=== PATIENT | female | born 1940 | race Caucasian/White ===

== ENCOUNTER → 2016-12-13 | Day surgery (SDC) | payer MEDICARE, OTHER ==
[~2016-12-13] MED LIST: Lactated Ringers 1,000 ML IV SCH; Propofol 200 MG/20 ML SDV IV ONE
[2016-12-13 10:06] VITALS: BP 116/64
--- NOTE | 2016-12-13 13:36 | OR ---
DATE OF OPERATION: 12/13/2016 PREOPERATIVE DIAGNOSIS: FAMILY HISTORY OF COLON CARCINOMA. POSTOPERATIVE DIAGNOSIS: FAMILY HISTORY OF COLON CARCINOMA. SURGEON: Nicolas Castillo MD PROCEDURE: FULL-LENGTH COLONOSCOPY WITH POLYP REMOVAL X1. 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 COMPLICATIONS: None. SPECIMEN: Small tubular adenoma hepatic flexure. FINDINGS: 1. Full-length colonoscopy. 2. Small polyp hepatic flexure. RECOMMENDATIONS: Followup colonoscopy every 5 years. INDICATIONS: The patient has a family history of colon cancer. She is due for a routine followup colonoscopy. DESCRIPTION OF PROCEDURE: The patient was prepped and draped, placed in the left lateral decubitus position. A lubricated Olympus colonoscope was inserted and easily advanced to the cecum. Direct visualization of the ileocecal valve and appendiceal orifice was accomplished. Bowel prep was fine. Upon withdrawal of the scope, the cecum and ascending colon were benign. The patient has a small flat tubular adenoma hepatic flexure, removed in its entirety with cold forceps x2. The rest of the transverse and descending colon were completely unremarkable. Throughout the entire sigmoid and rectosigmoid area, I found no polyps, mass, ulceration, or bleeding sites. No vascular abnormalities or signs of colitis. The rectal vault was unremarkable. Retroflexion of the scope in the rectum showed some perianal hemorrhoidal disease, but otherwise benign. Air was then suctioned from the colon. The scope was removed without complication. SHAWNA/ZAYNAB /[id number]
== END ==
LOC: CC.SDS 07:40
PROVIDERS: ATTEND Family Medicine
PROC: 0DBK8ZZ Excision of Ascending Colon, Via Natural or Artificial Opening Endoscopic (ICD-10-PCS; principal; 2016-12-13)
DX: Z12.11 Encounter for screening for malignant neoplasm of colon (principal); D12.3 Benign neoplasm of transverse colon; Z80.0 Family history of malignant neoplasm of digestive organs; J20.9 Acute bronchitis, unspecified; J45.909 Unspecified asthma, uncomplicated; M50.90 Cervical disc disorder, unspecified, unspecified cervical region; K21.9 Gastro-esophageal reflux disease without esophagitis; E78.00 Pure hypercholesterolemia, unspecified; D64.9 Anemia, unspecified; E78.5 Hyperlipidemia, unspecified; M19.90 Unspecified osteoarthritis, unspecified site; H40.9 Unspecified glaucoma; Z88.8 Allergy status to other drugs, medicaments and biological substances; F17.210 Nicotine dependence, cigarettes, uncomplicated; Z91.040 Latex allergy status; Z79.82 Long term (current) use of aspirin; Z79.899 Other long term (current) drug therapy; M85.80 Other specified disorders of bone density and structure, unspecified site; Z98.890 Other specified postprocedural states
CPT/HCPCS: 00810; 45380; 88305; J2704; J7120

== ENCOUNTER 2020-07-16 12:28 | Emergency (ER) | payer MEDICARE, OTHER ==
[2020-07-16] MEDS ORDERED: Sodium Chloride 0.9% 500 ML IV SCH (13:00)
--- NOTE | 2020-07-16 13:04 | EDM.PDOC ---
ED HPI GENERAL MEDICAL PROBLEM - General Chief Complaint: General Stated Complaint: Dizzy Time Seen by Provider: 07/16/20 12:55 Source of Information: Reports: Patient History Limitations: Reports: No Limitations - History of Present Illness INITIAL COMMENTS - FREE TEXT/NARRATIVE: This patient is a 80 year old female that presents to the ER. Patient reports that this morning she was tearing checks and started having some left and right shoulder pain with this. She reports that she has chronic history of bilateral shoulder pain, left worse than right due to rotator cuff tears chronic. She reports that she started to have this pain into the back of her head this morning from tearing the checks. She reports that she normally sees PT for this. She reports that she also forgot to take her antacid pill this morning for GERD before breakfast and went to [facility]. She reports being in [facility] and started having "rolling in belly", nausea. She reports taking a tums. She reports that in [facility] her left shoulder was hurting into the back of her head, so she kept rolling her neck and shoulder to help the pain. She reports while doing this she became dizzy and nearly pass out. She reports the room felt distant and she was seeing lights. She reports that everyone there at [facility] said she looked pale. She reports she did not pass out, but felt like she could have. She denies unilateral weaknesses. She denies chest pain, shortness of breath. She reports her dizziness has resolved. Onset: Today, Sudden Onset Date: 07/16/20 Onset Time: 12:10 Location: Reports: Head Quality: Reports: Ache Severity: Moderate Improves with: Reports: Immobilization Worsens with: Reports: Movement (posterior headache worsens with movement of the shoulders and neck) Associated Symptoms: Reports: No Other Symptoms, Headaches, Nausea/Vomiting, Syncope (near). 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: Reports: Other (see below) (Tums for acid reflux) Neck Pain Score (Numeric/FACES): 3 - Related Data Allergies Allergy/AdvReac Type Severity Reaction Status Date / Time atorvastatin calcium Allergy Liver Verified 07/16/20 12:50 [From Lipitor] Problems cyclobenzaprine HCl Allergy Cannot Verified 07/16/20 12:50 [From Flexeril] Remember Latex, Natural Rubber Allergy Cannot Verified 07/16/20 12:50 Remember pravastatin sodium Allergy Cannot Verified 07/16/20 12:50 [From Pravachol] Remember rosuvastatin calcium Allergy Liver Verified 07/16/20 12:50 [From Crestor] Problems simvastatin [From Zocor] Allergy Liver Verified 07/16/20 12:50 Problems Home Meds: Home Meds Arfvf-K-Kqousisfeofna [Beano] 1 each PO BID PRN 10/20/13 [History] Aspirin 325 mg PO DAILY PRN 10/20/13 [History] Ezetimibe [Zetia] 10 mg PO BEDTIME 10/20/13 [History] Famciclovir 500 mg PO DAILY PRN 10/20/13 [History] Fluticasone Furoate [Veramyst] 1 spray FELIX ASDIRECTED PRN 10/20/13 [History] Hypromellose [Genteal Mild] 1 drp OP ASDIRECTED PRN 10/20/13 [History] Ibuprofen 400 mg PO Q6H PRN 10/20/13 [History] Loratadine [Claritin] 10 mg PO DAILY 10/20/13 [History] Lysine 500 mg PO QID PRN 10/20/13 [History] Multivitamin [Daily Vitamin] 1 each PO DAILY 10/20/13 [History] Naproxen Sodium [Aleve] 220 mg PO ASDIRECTED PRN 10/20/13 [History] Penciclovir [Denavir] 1 applic TP ASDIRECTED PRN 10/20/13 [History] Esomeprazole [NexIUM] 40 mg PO BID 02/03/16 [History] Montelukast [Singulair] 10 mg PO BEDTIME 02/03/16 [History] Rosuvastatin [Crestor] 5 mg PO DAILY 02/03/16 [History] Ubidecarenone [Co Q-10] 30 mg PO BID 02/03/16 [History] Past Medical History HEENT History: Reports: Allergic Rhinitis Cardiovascular History: Reports: CAD, High Cholesterol Respiratory History: Reports: Asthma, Sleep Apnea, SOB Gastrointestinal History: Reports: GERD, Other (See Below) Other Gastrointestinal History: ulcers Genitourinary History: Reports: Other (See Below) Other Genitourinary History: Bladder control problems with coughing Musculoskeletal History: Reports: Back Pain, Chronic, Fibromyalgia, Neck Pain, Chronic, Other (See Below) Other Musculoskeletal History: Right Shoulder Arthroscopy this am Neurological History: Reports: Migraines - Past Surgical History HEENT Surgical History: Reports: Cataract Surgery Musculoskeletal Surgical History: Reports: Shoulder Surgery ED ROS GENERAL - Review of Systems Review Of Systems: See Below Constitutional: Reports: No Symptoms HEENT: Reports: No Symptoms Respiratory: Reports: No Symptoms. Denies: Shortness of Breath Cardiovascular: Reports: Lightheadedness, Syncope (near). Denies: Chest Pain, Dyspnea on Exertion, Edema, Palpitations Endocrine: Reports: No Symptoms GI/Abdominal: Reports: Nausea. Denies: Abdominal Pain, Diarrhea, Vomiting : Reports: No Symptoms Musculoskeletal: Reports: Neck Pain, Shoulder Pain (bialteral, left worse than right.) Skin: Reports: No Symptoms Neurological: Reports: Dizziness, Headache, Syncope (near). Denies: Confusion, Numbness, Seizure, Tingling, Tremors, Trouble Speaking, Difficulty Walking, Weakness, Change in Speech Psychiatric: Reports: No Symptoms Hematologic/Lymphatic: Reports: No Symptoms Immunologic: Reports: No Symptoms ED EXAM, GENERAL - Physical Exam Exam: See Below Exam Limited By: No Limitations General Appearance: Alert, WD/WN, No Apparent Distress Eye Exam: Bilateral Eye: EOMI, Normal Inspection, PERRL Ears: Normal External Exam, Normal Canal, Hearing Grossly Normal, Normal TMs Ear Exam: Bilateral Ear: Auricle Normal, Canal Normal, TM normal Nose: Normal Inspection, Normal Mucosa, No Blood Throat/Mouth: Normal Inspection, Normal Lips, Normal Teeth, Normal Gums, Normal Oropharynx, Normal Voice, No Airway Compromise Head: Atraumatic, Normocephalic Neck: Normal Inspection, Supple, Non-Tender, Full Range of Motion Respiratory/Chest: No Respiratory Distress, Lungs Clear, Normal Breath Sounds, No Accessory Muscle Use, Chest Non-Tender Cardiovascular: Normal Peripheral Pulses, Regular Rate, Rhythm, No Edema, No Gallop, No JVD, No Murmur, No Rub Peripheral Pulses: 2+: Carotid (L), Carotid (R), Radial (L), Radial (R), Posterior Tibial (L), Posterior Tibial (R), Dorsalis Pedis (L), Dorsalis Pedis (R) GI/Abdominal: Normal Bowel Sounds, Soft, Non-Tender, No Organomegaly, No Distention, No Abnormal Bruit, No Mass, Pelvis Stable (Female) Exam: Deferred Rectal (Female) Exam: Deferred Back Exam: Normal Inspection, Full Range of Motion Extremities: Normal Inspection, Normal Range of Motion, Non-Tender, No Pedal Edema, Normal Capillary Refill Neurological: Alert, Oriented, CN II-XII Intact, Normal Cognition, Normal Gait, No Motor/Sensory Deficits Psychiatric: Normal Affect, Normal Mood Skin Exam: Warm, Dry, Intact, Normal Color, No Rash Lymphatic: No Adenopathy EKG INTERPRETATION EKG Date: 07/16/20 Time: 13:34 Rhythm: NSR Rate (Beats/Min): 70 [place]: Normal P-Wave: Present QRS: Normal ST-T: Normal QT: Normal Course - Vital Signs Last Recorded V/S: Last Vital Signs Temp 98.3 F 07/16/20 19:30 Pulse 80 07/16/20 19:30 Resp 16 07/16/20 19:30 BP 137/67 07/16/20 19:30 Pulse Ox 95 07/16/20 19:30 - Orders/Labs/Meds Orders: Active Orders 24 hr Category Date Time Status Orthostatic Vital Signs [RC] ASDIRECTED Care 07/16/20 12:58 Active Chest 2V [CR] Stat Exams 07/16/20 12:56 Taken Head wo Cont [CT] Stat Exams 07/16/20 12:56 Taken Sodium Chloride 0.9% [Normal Saline] 500 ml Med 07/16/20 13:00 Active IV .BOLUS Medication Orders Sodium Chloride (Normal Saline) 500 mls @ 250 mls/hr IV .BOLUS JONATHAN Last Admin: 07/16/20 13:11 Dose: 250 mls/hr Documented by: JOSE Labs: Laboratory Tests 07/16/20 07/16/20 07/16/20 Range/Units 13:09 13:09 13:09 WBC 6.3 (5.0-10.0) 10^3/uL RBC 4.35 (4.00-5.50) 10^6/uL Hgb 12.8 (12.0-16.0) g/dL Hct 39.0 (37.0-47.0) % MCV 89.7 (82.0-94.0) fL MCH 29.4 (27.0-32.0) pg MCHC 32.8 L (33.0-38.0) g/dL RDW Coeff of Morelia 13.3 (11.0-15.0) % Plt Count 200 (150-400) 10^3/uL Neut % (Auto) 65.0 (35-85) % Lymph % (Auto) 24.1 (10-55) % [place] % (Auto) 8.9 (0-16) % Eos % (Auto) 1.4 (0-5) % Baso % (Auto) 0.6 (0-3) % Neut # (Auto) 4.07 (1.80-7.00) 10^3/uL Lymph # (Auto) 1.51 (1.00-4.80) 10^3/uL [place] # (Auto) 0.56 (0.00-0.80) 10^3/uL Eos # (Auto) 0.09 (0.00-0.45) 10^3/uL Baso # (Auto) 0.04 10^3/uL PT 11.0 (9.7-12.3) SEC INR 1.09 (0.92-1.18) Sodium 139 (136-145) mEq/L Potassium 4.2 (3.5-5.0) mEq/L Chloride 103 (98-106) mEq/L Carbon Dioxide 28 (21-32) mmol/L BUN 10 (7-18) mg/dL Creatinine 1.0 (0.6-1.0) mg/dL Est Cr Clr Drug Dosing TNP Estimated GFR (MDRD) 53 L (>=60) mL/min Glucose 123 H (75-99) mg/dL Calcium 8.7 (8.4-10.1) mg/dL Total Bilirubin 0.3 (0.0-1.0) mg/dL AST 20 (15-37) U/L ALT 18 (12-78) U/L Alkaline Phosphatase 49 (46-116) U/L Creatine Kinase 111 (21-215) U/L Troponin I < 0.017 (0.00-0.06) ng/mL NT-Pro-B Natriuret Pep 75 (0-1000) pg/mL Total Protein 6.7 (6.4-8.2) g/dL Albumin 3.7 (3.4-5.0) g/dL SARS CoV-2 RNA Rapid NAHOMI (NEGATIVE) 07/16/20 07/16/20 07/16/20 Range/Units 13:11 17:03 20:38 WBC (5.0-10.0) 10^3/uL RBC (4.00-5.50) 10^6/uL Hgb (12.0-16.0) g/dL Hct (37.0-47.0) % MCV (82.0-94.0) fL MCH (27.0-32.0) pg MCHC (33.0-38.0) g/dL RDW Coeff of Morelia (11.0-15.0) % Plt Count (150-400) 10^3/uL Neut % (Auto) (35-85) % Lymph % (Auto) (10-55) % [place] % (Auto) (0-16) % Eos % (Auto) (0-5) % Baso % (Auto) (0-3) % Neut # (Auto) (1.80-7.00) 10^3/uL Lymph # (Auto) (1.00-4.80) 10^3/uL [place] # (Auto) (0.00-0.80) 10^3/uL Eos # (Auto) (0.00-0.45) 10^3/uL Baso # (Auto) 10^3/uL PT (9.7-12.3) SEC INR (0.92-1.18) Sodium (136-145) mEq/L Potassium (3.5-5.0) mEq/L Chloride (98-106) mEq/L Carbon Dioxide (21-32) mmol/L BUN (7-18) mg/dL Creatinine (0.6-1.0) mg/dL Est Cr Clr Drug Dosing Estimated GFR (MDRD) (>=60) mL/min Glucose (75-99) mg/dL Calcium (8.4-10.1) mg/dL Total Bilirubin (0.0-1.0) mg/dL AST (15-37) U/L ALT (12-78) U/L Alkaline Phosphatase (46-116) U/L Creatine Kinase (21-215) U/L Troponin I < 0.017 < 0.017 (0.00-0.06) ng/mL NT-Pro-B Natriuret Pep (0-1000) pg/mL Total Protein (6.4-8.2) g/dL Albumin (3.4-5.0) g/dL SARS CoV-2 RNA Rapid NAHOMI Negative (NEGATIVE) Meds: Medications Generic Name Dose Route Start Last Admin Trade Name Stas PRN Reason Stop Dose Admin Sodium Chloride 500 mls @ 250 mls/hr 07/16/20 13:00 07/16/20 13:11 Normal Saline IV 250 mls/hr .BOLUS JONATHAN Administration - Radiology Interpretation Free Text/Narrative:: Head CT: no acute findings CXR: no acute findings CT Results Date: 07/16/20 CT Results Time: 13:59 - Re-Assessments/Exams Free Text/Narrative Re-Assessment/Exam: 07/16/20 14:44 Patient reports she has not had any dizziness or near syncope since being in the ER. She reports that her headache and neck, shoulder pain is feeling better. She report that she is ready to go home. I discussed with the patient about doing a cardia rule out with repeat troponins due to her near syncope, shoulders pain and nausea. She so far has agreed with the first troponin repeat. She will call her son and discuss with him further. Will do extended ER at this time for troponin repeat. 07/16/20 19:52 Patient 2nd troponin was negative. The patient reports since being here she has not had any pain and that she has not had a headache or syncope, near syncope, or dizziness. She reports that she feels fine now. The patient has refused admission to the hospital. I have recommended admission for cardiac rule out, however she still refuses to be admitted to the hospital. She reports that she will do a last troponin draw at 9pm, but no later than that. She reports once I have that and if its negative she will leave to go home. Therefore, reasoning for long ER time is patient refusal of admission, but agreement to do troponin up until 9pm. Then will discharge home if normal. 07/16/20 21:13 Troponin 3rd, negative. Will discharge. Departure - Departure Time of Disposition: 21:12 Disposition: Home, Self-Care 01 Condition: Fair Clinical Impression: Near syncope - Discharge Information *PRESCRIPTION DRUG MONITORING PROGRAM REVIEWED*: Not Applicable *COPY OF PRESCRIPTION DRUG MONITORING REPORT IN PATIENT ELFE[place]: Not Applicable Instructions: Near-Syncope, [id number] Referrals: PCP,Unknown [Primary Care Provider] - Forms: ED Department Discharge Additional Instructions: Followup with your primary care provider this week for a recheck Return to the ER for worsening of condition or any emergent concerns Go home and rest Drink plenty of fluids Sepsis Event Note (ED) - Focused Exam Vital Signs: Vital Signs Temp Pulse Resp BP BP Pulse Ox 07/16/20 19:30 98.3 F 80 16 137/67 95 07/16/20 13:26 96.8 F L 78 20 108/65 95 - My Orders Last 24 Hours: My Active Orders 07/16/20 12:56 Chest 2V [CR] Stat Head wo Cont [CT] Stat 07/16/20 12:58 Orthostatic Vital Signs [RC] ASDIRECTED 07/16/20 13:00 Sodium Chloride 0.9% [Normal Saline] 500 ml IV .BOLUS - Assessment/Plan Last 24 Hours: My Active Orders 07/16/20 12:56 Chest 2V [CR] Stat Head wo Cont [CT] Stat 07/16/20 12:58 Orthostatic Vital Signs [RC] ASDIRECTED 07/16/20 13:00 Sodium Chloride 0.9% [Normal Saline] 500 ml IV .BOLUS Plan: PLEASE SEE RN NOTE FOR PFSH
[2020-07-16 13:37] LABS: CHLORIDE,CL 103 mEq/L (98-106); SODIUM,NA 139 mEq/L (136-145)
[2020-07-16 20:34] VITALS: BP 137/67; PULSE 80
== END 2020-07-16 21:25 | disposition home or self-care (01) ==
LOC: CC.ED 12:28
DX: R55 Syncope and collapse (principal); R42 Dizziness and giddiness; M25.511 Pain in right shoulder; M25.512 Pain in left shoulder; M54.2 Cervicalgia; I25.10 Atherosclerotic heart disease of native coronary artery without angina pectoris; E78.00 Pure hypercholesterolemia, unspecified; J45.909 Unspecified asthma, uncomplicated; K21.9 Gastro-esophageal reflux disease without esophagitis; Z20.828 Contact with and (suspected) exposure to other viral communicable diseases; Z88.8 Allergy status to other drugs, medicaments and biological substances; Z91.040 Latex allergy status; Z79.82 Long term (current) use of aspirin; Z79.899 Other long term (current) drug therapy
CPT/HCPCS: 36415; 70450; 71046; 80053; 82550; 83880; 84484; 85025; 85610; 93005; 93010; 96360; 96361; 99284; 99284-25; J7040; U0002

== ENCOUNTER → 2021-11-23 | Day surgery (SDC) | payer MEDICARE, OTHER ==
[~2021-11-23] MED LIST changes: +Ketamine 200 MG/20 ML MDV ONE; -Propofol 200 MG/20 ML SDV IV ONE; +Propofol 200 MG/20 ML SDV ONE
[2021-11-23 10:04] VITALS: BP 128/65; PULSE 78
== END ==
LOC: CC.SDS 06:55
PROVIDERS: ATTEND Family Medicine
DX: Z12.11 Encounter for screening for malignant neoplasm of colon (principal); C18.5 Malignant neoplasm of splenic flexure; D12.7 Benign neoplasm of rectosigmoid junction; J45.909 Unspecified asthma, uncomplicated; K21.9 Gastro-esophageal reflux disease without esophagitis; E78.5 Hyperlipidemia, unspecified; M85.89 Other specified disorders of bone density and structure, multiple sites; K64.9 Unspecified hemorrhoids; Z91.040 Latex allergy status; Z80.0 Family history of malignant neoplasm of digestive organs; Z86.010 Personal history of colon polyps; Z79.899 Other long term (current) drug therapy; Z98.890 Other specified postprocedural states; Z87.891 Personal history of nicotine dependence; Z88.8 Allergy status to other drugs, medicaments and biological substances
CPT/HCPCS: 45380; 45385; J2704; J7120; 88305; 88341; 88342

== ENCOUNTER 2022-09-22 10:47 | Emergency (ER) | payer MEDICARE, OTHER ==
[2022-09-22] MEDS ORDERED: predniSONE 20 MG Tab PO ONE (11:10)
[2022-09-22] MEDS ORDERED: Albuterol 8 GM Inhaler INH ONE (11:10)
[2022-09-22 11:46] VITALS: BP 156/82; PULSE 108
== END 2022-09-22 11:35 | disposition home or self-care (01) ==
LOC: CC.ED 10:47
DX: J40 Bronchitis, not specified as acute or chronic (principal); J04.0 Acute laryngitis; I25.10 Atherosclerotic heart disease of native coronary artery without angina pectoris; E78.00 Pure hypercholesterolemia, unspecified; K21.9 Gastro-esophageal reflux disease without esophagitis; Z91.040 Latex allergy status; Z88.8 Allergy status to other drugs, medicaments and biological substances; Z79.899 Other long term (current) drug therapy
CPT/HCPCS: 99283; A9270; J7512

== ENCOUNTER → 2023-06-13 | Day surgery (SDC) | payer MEDICARE, OTHER ==
[~2023-06-13] MED LIST changes: +fentaNYL 50 MCG/ML SDV ONE
[2023-06-13 10:16] VITALS: PULSE 78
[2023-06-13 11:33] VITALS: BP 119/49
== END ==
LOC: CC.SDS 08:49
PROVIDERS: ATTEND Family Medicine
DX: Z12.11 Encounter for screening for malignant neoplasm of colon (principal); D12.3 Benign neoplasm of transverse colon; D12.2 Benign neoplasm of ascending colon; K63.5 Polyp of colon; K64.9 Unspecified hemorrhoids; J45.909 Unspecified asthma, uncomplicated; E78.5 Hyperlipidemia, unspecified; M85.89 Other specified disorders of bone density and structure, multiple sites; K44.9 Diaphragmatic hernia without obstruction or gangrene; K21.9 Gastro-esophageal reflux disease without esophagitis; Z88.8 Allergy status to other drugs, medicaments and biological substances; Z91.040 Latex allergy status; Z79.899 Other long term (current) drug therapy
CPT/HCPCS: 00811; 88305; 99100; J2704; J3010; J3490; J7120

== ENCOUNTER 2024-02-27 09:23 | Day surgery (SDC) | payer MEDICARE, OTHER ==
[2024-02-27] MEDS: Lactated Ringers 1,000 ML IV SCH (09:46)
[2024-02-27 13:58] VITALS: BP 138/78; PULSE 20
== END 2024-02-27 11:45 | disposition home or self-care (01) ==
LOC: CC.SDS 09:23
PROVIDERS: ATTEND Family Medicine
DX: C18.9 Malignant neoplasm of colon, unspecified (principal); K21.9 Gastro-esophageal reflux disease without esophagitis; K22.70 Barrett's esophagus without dysplasia; K44.9 Diaphragmatic hernia without obstruction or gangrene; M81.0 Age-related osteoporosis without current pathological fracture; J30.9 Allergic rhinitis, unspecified; J45.909 Unspecified asthma, uncomplicated; I65.29 Occlusion and stenosis of unspecified carotid artery; E78.5 Hyperlipidemia, unspecified; D64.9 Anemia, unspecified; M54.6 Pain in thoracic spine; Z87.891 Personal history of nicotine dependence; Z86.010 Personal history of colon polyps; Z91.040 Latex allergy status; Z88.8 Allergy status to other drugs, medicaments and biological substances; Z79.899 Other long term (current) drug therapy; Z98.890 Other specified postprocedural states
CPT/HCPCS: J7120

== ENCOUNTER 2024-06-20 23:35 | Emergency (ER) | payer MEDICARE, OTHER ==
[2024-06-20 23:43] VITALS: BP 142/60; PULSE 97
[2024-06-21 00:01] LABS: BASOPHILS ABSOLUTE AUTO 0.01 10^3/uL (0.00-0.50); BASOPHILS PERCENT AUTO 0.1 % (0-1); EOSINOPHILS ABSOLUTE AUTO 0.08 10^3/uL (0.00-1.50); EOSINOPHILS PERCENT AUTO 0.6 % (0-6); HEMATOCRIT 38.1 % (37.0-47.0); HEMOGLOBIN 12.4 g/dL (12.0-16.0); IMMATURE GRAN ABSOLUTE AUTO 0.02 10^3/uL (0.00-0.49); IMMATURE GRAN PERCENT AUTO 0.2 % (0.0-4.9); LYMPHOCYTES ABSOLUTE AUTO 0.54 10^3/uL (0.60-5.00); LYMPHOCYTES PERCENT AUTO 4.1 % (24-44); MEAN CORPUSCULAR HEMOGLOBIN 29.5 pg (27.0-32.0); MEAN CORPUSCULAR HGB CONC 32.5 g/dL (32.0-36.0); MEAN CORPUSCULAR VOLUME 90.5 fL (83.0-97.0); MONOCYTES ABSOLUTE AUTO 0.86 10^3/uL (0.00-1.50); MONOCYTES PERCENT AUTO 6.6 % (0-10); NEUTROPHILS ABSOLUTE AUTO 11.53 x10^3/uL (1.80-8.00); NEUTROPHILS PERCENT AUTO 88.4 % (41-71); PLATELET COUNT,PLT 154 10^3/uL (150-400); RED BLOOD CELL COUNT 4.21 x10^6/uL (4.00-5.50)
[2024-06-21 00:14] LABS: ALANINE AMINOTRANSFERASE,ALT 21 U/L (12-78); ALBUMIN 3.4 g/dL (3.4-5.0); ALKALINE PHOSPHATASE 60 U/L (46-116); ASPARTATE AMNIOTRANSFERASE,AST 24 U/L (15-37); BILIRUBIN TOTAL 0.4 mg/dL (0.0-1.0); BLOOD UREA NITROGEN,BUN 20 mg/dL (7-18); C-REACTIVE PROTEIN < 0.50 mg/dL (<=0.50); CALCIUM 8.8 mg/dL (8.4-10.1); CARBON DIOXIDE,CO2 29 mmol/L (21-32); CHLORIDE,CL 100 mEq/L (98-106); EST CRCL DRUG DOSING (CG) 32.96 mL/min; ESTIMATED GFR 56 mL/min (>=60); GLUCOSE RANDOM 166 mg/dL (75-99); MAGNESIUM 1.8 mg/dL (1.8-2.4); POTASSIUM,K 4.3 mEq/L (3.5-5.0); PROTEIN TOTAL,TP 6.5 g/dL (6.4-8.2); SODIUM,NA 137 mEq/L (136-145)
[2024-06-21] MEDS: Sodium Chloride 0.9% 1,000 ML IV ONE (00:18)
[2024-06-21] MEDS: Ondansetron 4 MG/2 ML SDV IVPUSH PRN (00:18)
[2024-06-21] MEDS: Take Home: Ondansetron 4 MG Tab.DIS, 2 Tab Pack PO ONE (01:24)
== END 2024-06-21 01:35 | disposition home or self-care (01) ==
LOC: CC.ED 23:35
DX: R11.2 Nausea with vomiting, unspecified (principal); I25.10 Atherosclerotic heart disease of native coronary artery without angina pectoris; E78.00 Pure hypercholesterolemia, unspecified; J45.909 Unspecified asthma, uncomplicated; Z79.899 Other long term (current) drug therapy; Z91.040 Latex allergy status; Z88.8 Allergy status to other drugs, medicaments and biological substances
CPT/HCPCS: 36415; 80053; 83735; 85025; 86140; 96361; 96374; 99284; 99284-25; A9270-GY; J2405; J7030; U0002

== ENCOUNTER 2025-04-11 21:38 | Emergency (ER) | payer MEDICARE, OTHER ==
[2025-04-11 22:04] LABS: BASOPHILS ABSOLUTE AUTO 0.01 10^3/uL (0.00-0.50); BASOPHILS PERCENT AUTO 0.1 % (0-1); EOSINOPHILS ABSOLUTE AUTO 0.18 10^3/uL (0.00-1.50); EOSINOPHILS PERCENT AUTO 2.6 % (0-6); HEMATOCRIT 33.1 % (37.0-47.0); IMMATURE GRAN ABSOLUTE AUTO 0.01 10^3/uL (0.00-0.49); IMMATURE GRAN PERCENT AUTO 0.1 % (0.0-4.9); LYMPHOCYTES PERCENT AUTO 21.9 % (24-44); MEAN CORPUSCULAR HEMOGLOBIN 29.4 pg (27.0-32.0); MEAN CORPUSCULAR HGB CONC 33.2 g/dL (32.0-36.0); MEAN CORPUSCULAR VOLUME 88.5 fL (83.0-97.0); MONOCYTES ABSOLUTE AUTO 0.67 10^3/uL (0.00-1.50); MONOCYTES PERCENT AUTO 9.8 % (0-10); NEUTROPHILS ABSOLUTE AUTO 4.49 x10^3/uL (1.80-8.00); NEUTROPHILS PERCENT AUTO 65.5 % (41-71); PLATELET COUNT,PLT 169 10^3/uL (150-400); RED BLOOD CELL COUNT 3.74 x10^6/uL (4.00-5.50); WHITE BLOOD CELL COUNT,WBC 6.9 10^3/uL (4.0-11.0)
[2025-04-11 22:17] LABS: APPEARANCE,URINE CLEAR (CLEAR); BILIRUBIN,URINE NEGATIVE (NEGATIVE); COLOR,URINE YELLOW (YELLOW); GLUCOSE,URINE NEGATIVE (NEGATIVE); KETONES,URINE NEGATIVE (NEGATIVE); LEUKOCYTE ESTERASE,URINE NEGATIVE (NEGATIVE); NITRITE,URINE NEGATIVE (NEGATIVE); OCCULT BLOOD,URINE NEGATIVE (NEGATIVE); PH,URINE 5.5 (4.5-8.0); PROTEIN,URINE NEGATIVE (NEGATIVE); UROBILINOGEN,URINE 0.2 EU/dL (0.2-1.0)
[2025-04-11 22:18] LABS: ALBUMIN 3.4 g/dL (3.4-5.0); BILIRUBIN TOTAL 0.3 mg/dL (0.0-1.0); C-REACTIVE PROTEIN 0.51 mg/dL (<=0.50); CALCIUM 8.7 mg/dL (8.4-10.1); CREATININE 0.8 mg/dL (0.6-1.0); EST CRCL DRUG DOSING (CG) 41.23 mL/min; MAGNESIUM 1.8 mg/dL (1.8-2.4); POTASSIUM,K 4.3 mEq/L (3.5-5.0); PROTEIN TOTAL,TP 6.2 g/dL (6.4-8.2)
[2025-04-11 23:16] VITALS: BP 135/74; PULSE 82
== END 2025-04-11 23:20 | disposition home or self-care (01) ==
LOC: CC.ED 21:38
DX: M54.12 Radiculopathy, cervical region (principal); M62.838 Other muscle spasm; J45.909 Unspecified asthma, uncomplicated; E78.00 Pure hypercholesterolemia, unspecified; Z88.8 Allergy status to other drugs, medicaments and biological substances; Z79.899 Other long term (current) drug therapy
CPT/HCPCS: 36415; 70450; 80053; 81003; 83690; 83735; 84484; 85025; 86140; 93005; 93010; 97110-GP; 97161-GP; 99284; 99285

== ENCOUNTER 2025-06-10 08:08 | Day surgery (SDC) | payer MEDICARE, OTHER ==
[2025-06-10] MEDS: Lactated Ringers 1,000 ML IV SCH (08:30)
[2025-06-10] MEDS ORDERED: fentaNYL 50 MCG/ML SDV ONE (08:38)
[2025-06-10] MEDS ORDERED: Propofol 200 MG/20 ML SDV ONE (08:38)
[2025-06-10 09:37] VITALS: BP 130/60; PULSE 96
== END 2025-06-10 09:45 | disposition home or self-care (01) ==
LOC: CC.SDS 08:08
PROVIDERS: ATTEND Family Medicine
DX: K22.70 Barrett's esophagus without dysplasia (principal); K44.9 Diaphragmatic hernia without obstruction or gangrene; K31.89 Other diseases of stomach and duodenum; J45.909 Unspecified asthma, uncomplicated; Z88.8 Allergy status to other drugs, medicaments and biological substances; Z91.040 Latex allergy status; Z88.5 Allergy status to narcotic agent; Z79.899 Other long term (current) drug therapy
CPT/HCPCS: 00731; 43239; 87081; 99100; J2003; J2704; J3010; J7120; 88305